=== PATIENT | female | born 1990 | race Caucasian/White ===

== ENCOUNTER 2022-09-27 18:02 | Emergency (ER) | payer OTHER ==
[~2022-09-27 18:02] MED LIST: Iopamidol-370 76% 500 ML MDV (1 ML CHARGE) ONE
[2022-09-27] MEDS ORDERED: fentaNYL 50 mcg/mL 1 mL Vial ONE ×3 (18:09→18:48)
[2022-09-27 18:24] LABS: #Basophils 0.1 thou/uL (0.0-0.2); #Eosinphils 0.1 thou/uL (0.0-0.7); %Basophils 0.3 % (0.0-1.0); %Eosinophils 0.6 % (0.0-10.0); %Lymphocytes 15.8 % (21.0-51.0); %Monocytes 4.6 % (0.0-10.0); %Neutrophils 78.1 % (42.0-75.0); Hematocrit 40.1 % (36.0-47.0); Mean Corpuscular HGB CONC 32.4 g/dL (32.0-36.0); Mean Corpuscular Hemoglobin 29.3 pg (27.0-31.0); Mean Corpuscular Volume 90.5 fl (78.0-98.0); Mean Platelet Volume 10.6 fL (7.4-10.4); Platelet Count 269 10x3/uL (130-400); RBC Distribution Width 15.5 % (11.5-14.5); Red Blood Cell (RBC) Count 4.43 mill/uL (4.20-5.40); White Blood Cell (WBC) Count 21.7 10x3/uL (4.8-10.8)
[2022-09-27] MEDS ORDERED: CEFAZOLIN 2 GM VIAL ONE (18:29)
[2022-09-27] MEDS ORDERED: TETANUS, DIPHTHERIA TOX,ADULT (TDVAX) 0.5 ML VIAL IM ONE (18:29)
[2022-09-27] MEDS ORDERED: Boostrix 0.5 ML (Tdap) VIAL (>/=7 yrs of age) ONE (18:33)
[2022-09-27] MEDS ORDERED: Calcium Chloride 1 GM/10 ML Abboject SYRINGE ONE (18:35)
[2022-09-27 18:44] LABS: INR-International Normal Ratio 1.1; PTT 25.7 sec (22.9-36.1); Prothrombin Time 14.8 sec (12.0-14.7)
[2022-09-27 18:45] LABS: ALT (SGPT) 125 U/L (8-55); AST (SGOT) 157 U/L (5-34); Alkaline Phosphatase 38 U/L (40-110); Anion Gap 19 mmol/L (10-20); BUN (Urea Nitrogen) 12 mg/dL (7.0-18.7); Bilirubin, Total 0.5 mg/dL (0.2-1.2); Calc. Creatinine Clearance 0 mL/min (70-130); Calcium 8.6 mg/dL (7.8-10.44); Carbon Dioxide 17 mmol/L (22-29); Chloride 107 mmol/L (98-107); Estimated GFR 72; Globulin 2.4 g/dL (2.4-3.5); Glucose 260 mg/dL (70-105); Potassium 3.7 mmol/L (3.5-5.1); Protein, Total 6.4 g/dL (6.0-8.3); Sodium 139 mmol/L (136-145)
[2022-09-27 19:43] LABS: CRP (Inflammatory) Less than 0.50 mg/dL (= or < 0.5); Lipase 178 U/L (8-78)
[2022-09-27 19:44] LABS: ALT (SGPT) 127 U/L (8-55); AST (SGOT) 154 U/L (5-34); Albumin 3.9 g/dL (3.5-5.0); Alkaline Phosphatase 40 U/L (40-110); Anion Gap 24 mmol/L (10-20); BUN (Urea Nitrogen) 11 mg/dL (7.0-18.7); Bilirubin, Total 0.6 mg/dL (0.2-1.2); CK (CPK) 534 U/L (29-168); Calc. Creatinine Clearance 0 mL/min (70-130); Calcium 8.8 mg/dL (7.8-10.44); Carbon Dioxide 15 mmol/L (22-29); Chloride 108 mmol/L (98-107); Estimated GFR 76; Globulin 2.4 g/dL (2.4-3.5); Glucose 246 mg/dL (70-105); Potassium 3.5 mmol/L (3.5-5.1); Protein, Total 6.3 g/dL (6.0-8.3); Sodium 143 mmol/L (136-145)
== END 2022-09-27 19:35 | disposition short-term general hospital (02) ==
LOC: ERS 18:02
DX: S32.82XA Multiple fractures of pelvis without disruption of pelvic ring, initial encounter for closed fracture (principal); S52.92XA Unspecified fracture of left forearm, initial encounter for closed fracture; S32.811A Multiple fractures of pelvis with unstable disruption of pelvic ring, initial encounter for closed fracture; S36.032A Major laceration of spleen, initial encounter; V29.99XA Rider (driver) (passenger) of other motorcycle injured in unspecified traffic accident, initial encounter; Z23 Encounter for immunization
CPT/HCPCS: 29125; 36415; 36430; 70450; 71045; 71260; 72125; 72170; 74177; 80053; 82550; 83605; 83690; 85025; 85610; 85730; 86140; 86850; 86900; 86901; 90471; 90714; 90715; 93005; 94760; 96365; 96367; 96375; 96376; G0390; J3010; P9016; P9048; Q9967